=== PATIENT | male | born 1970 | race Caucasian/White ===

== ENCOUNTER 2017-05-29 14:32 | Inpatient (IN) | payer OTHER ==
[2017-05-29] MEDS ORDERED: IBUPROFEN LIQUID (PED) 20 MG/ML CUP PO (16:34)
[2017-05-29 16:41] LABS: ADD MAN DIFF? NO
[2017-05-29 16:45] LABS: WHITE BLOOD COUNT 20.6 10^3/ul (4.8-10.8)
[2017-05-29 16:45] LABS: BASOPHIL # 0.1 10^3/ul (0.0-0.1); BASOPHILS % 0.4 % (0.0-2.0); EOSINOPHILS % 0.1 % (0.0-7.0); HEMOGLOBIN 14.9 g/dl (14.0-18.0); LYMPHOCYTES # 1.4 10^3/ul (0.8-2.9); LYMPHOCYTES % 6.9 % (15.0-51.0); MEAN CORPUSCULAR HEMOGLOBIN 30.8 pg (29.0-33.0); MEAN CORPUSCULAR HGB CONC 33.9 g/dl (32.0-37.0); MEAN CORPUSCULAR VOLUME 90.9 fl (82.0-101.0); MEAN PLATELET VOLUME 10.6 fl (7.4-10.4); MONOCYTE # 0.9 10^3/ul (0.3-0.9); MONOCYTES % 4.5 % (0.0-11.0); NEUTROPHILS % 87.4 % (39.0-77.0); PLATELET COUNT 189 10^3/UL (140-415); RED BLOOD COUNT 4.84 10^6/ul (4.70-6.10); RED CELL DISTRIBUTION WIDTH 13.2 % (11.5-14.5)
[2017-05-29 17:02] LABS: INR 1.15; PROTIME 14.9 Sec (11.9-14.9); PT RATIO 1.2
[2017-05-29 17:03] LABS: PARTIAL THROMBOPLASTIN TIME 37.7 Sec (25.0-35.0)
[2017-05-29 17:04] LABS: ALANINE AMINOTRANSFERASE 35 IU/L (13-69); ALBUMIN 4.2 g/dl (3.3-4.9); ALBUMIN/GLOBULIN RATIO 1.31; ALKALINE PHOSPHATASE 77 IU/L (42-121); ANION GAP 13 (8-16); ASPARTATE AMINO TRANSFERASE 19 IU/L (15-46); BILIRUBIN,INDIRECT 0.3 mg/dl (0-1.1); BILIRUBIN,TOTAL 0.3 mg/dl (0.2-1.3); BLOOD UREA NITROGEN 18 mg/dl (7-20); CALCIUM 8.9 mg/dl (8.4-10.2); CARBON DIOXIDE 27 mmol/L (21-31); CHLORIDE 100 mmol/L (97-110); CREATININE 1.21 mg/dl (0.61-1.24); GLUCOSE 92 mg/dl (70-220); POTASSIUM 3.7 mmol/L (3.5-5.1); SODIUM 136 mmol/L (135-144); TOTAL PROTEIN 7.4 g/dl (6.1-8.1)
[2017-05-29] MEDS: HYDROmorphONE 1 MG/ML SYG IV ×2 (17:26→20:21)
[2017-05-29] MEDS: ONDANSETRON 4 MG INJ IV (17:26)
[2017-05-29] MEDS: PIPER-TAZO 3.375 GM IV (PMX) 100 ML IVPB (17:35)
[2017-05-29] MEDS: VANCOMYCIN 1 GM (PMX) 250 ML IVPB (18:22)
[2017-05-29] MEDS ORDERED: ONDANSETRON 4 MG INJ IV (20:00)
[2017-05-29] MEDS ORDERED: ACETAMINOPHEN 325 MG TAB PO (20:00)
[2017-05-29] MEDS: CEFAZOLIN 1 GM/50 ML (PMX) 50 ML IVPB (20:21)
[2017-05-29] MEDS ORDERED: ONDANSETRON 4 MG TAB PO (20:30)
[2017-05-29] MEDS ORDERED: NACL 0.9% 3 ML SYG IV (20:30)
[2017-05-30] MEDS: CEFAZOLIN 1 GM/50 ML (PMX) 50 ML IVPB ×2 (04:28→12:00)
[2017-05-30 04:53] LABS: ADD MAN DIFF? NO
[2017-05-30 05:00] LABS: WHITE BLOOD COUNT 14.8 10^3/ul (4.8-10.8)
[2017-05-30 05:00] LABS: BASOPHILS % 0.3 % (0.0-2.0); EOSINOPHILS # 0.1 10^3/ul (0.0-0.5); EOSINOPHILS % 0.9 % (0.0-7.0); HEMATOCRIT 43.7 % (42.0-52.0); HEMOGLOBIN 14.8 g/dl (14.0-18.0); MEAN CORPUSCULAR HEMOGLOBIN 31.1 pg (29.0-33.0); MEAN CORPUSCULAR HGB CONC 33.9 g/dl (32.0-37.0); MEAN CORPUSCULAR VOLUME 91.8 fl (82.0-101.0); MONOCYTE # 0.8 10^3/ul (0.3-0.9); MONOCYTES % 5.2 % (0.0-11.0); NEUTROPHIL # 12.7 10^3/ul (1.6-7.5); PLATELET COUNT 197 10^3/UL (140-415); RED BLOOD COUNT 4.76 10^6/ul (4.70-6.10); RED CELL DISTRIBUTION WIDTH 13.3 % (11.5-14.5)
[2017-05-30 05:21] LABS: ANION GAP 11 (8-16); BLOOD UREA NITROGEN 19 mg/dl (7-20); CALCIUM 9.2 mg/dl (8.4-10.2); CARBON DIOXIDE 30 mmol/L (21-31); CHLORIDE 99 mmol/L (97-110); CREATININE 1.26 mg/dl (0.61-1.24); GLUCOSE 123 mg/dl (70-220); MAGNESIUM 1.9 mg/dl (1.7-2.5); PHOSPHORUS 2.7 mg/dl (2.5-4.9); POTASSIUM 4.3 mmol/L (3.5-5.1); SODIUM 136 mmol/L (135-144)
[2017-05-30] MEDS: ACETAMINOPHEN 325 MG TAB PO ×2 (05:21→14:42)
[2017-05-30 07:20] LABS: HEMOGLOBIN A1C 5.7 % (0-5.9)
[2017-05-30] MEDS: ENOXAPARIN 40 MG/0.4 ML SYG SC (08:11)
[2017-05-30] MEDS: HYDROCODONE/APAP (5/325) TAB PO (08:15)
[2017-05-30] MEDS ORDERED: VANCOMYCIN IV PER PHARMACY XX (14:30)
[2017-05-30] MEDS ORDERED: HYDROmorphONE 0.5 MG/0.5 ML SYG IV (14:30)
[2017-05-30] MEDS: VANCOMYCIN 1.25 GM in SOD CHLORIDE 0.9% 250 ML IVPB (16:20)
[2017-05-30] MEDS: PIPER-TAZO 3.375 GM IV (PMX) 100 ML IVPB (20:41)
[2017-05-31] MEDS: PIPER-TAZO 3.375 GM IV (PMX) 100 ML IVPB ×3 (01:53→18:56)
[2017-05-31] MEDS: VANCOMYCIN 1.25 GM in SOD CHLORIDE 0.9% 250 ML IVPB ×2 (04:18→15:34)
[2017-05-31] MEDS: HYDROCODONE/APAP (10/325) TAB PO ×2 (05:48→20:18)
[2017-05-31 06:11] LABS: ADD MAN DIFF? NO
[2017-05-31 06:30] LABS: WHITE BLOOD COUNT 11.9 10^3/ul (4.8-10.8)
[2017-05-31 06:30] LABS: BASOPHIL # 0.1 10^3/ul (0.0-0.1); BASOPHILS % 0.4 % (0.0-2.0); EOSINOPHILS # 0.2 10^3/ul (0.0-0.5); EOSINOPHILS % 1.7 % (0.0-7.0); HEMATOCRIT 38.1 % (42.0-52.0); HEMOGLOBIN 13.4 g/dl (14.0-18.0); LYMPHOCYTES # 1.2 10^3/ul (0.8-2.9); LYMPHOCYTES % 9.8 % (15.0-51.0); MEAN CORPUSCULAR HEMOGLOBIN 31.3 pg (29.0-33.0); MEAN CORPUSCULAR HGB CONC 35.2 g/dl (32.0-37.0); MEAN PLATELET VOLUME 10.8 fl (7.4-10.4); MONOCYTE # 0.6 10^3/ul (0.3-0.9); MONOCYTES % 5.4 % (0.0-11.0); NEUTROPHIL # 9.8 10^3/ul (1.6-7.5); NEUTROPHILS % 82.5 % (39.0-77.0); PLATELET COUNT 194 10^3/UL (140-415); RED BLOOD COUNT 4.28 10^6/ul (4.70-6.10); RED CELL DISTRIBUTION WIDTH 12.9 % (11.5-14.5)
[2017-05-31 07:22] LABS: ANION GAP 13 (8-16); BLOOD UREA NITROGEN 12 mg/dl (7-20); CARBON DIOXIDE 23 mmol/L (21-31); CHLORIDE 103 mmol/L (97-110); CREATININE 1.01 mg/dl (0.61-1.24); GLUCOSE 137 mg/dl (70-220); POTASSIUM 4.2 mmol/L (3.5-5.1); SODIUM 135 mmol/L (135-144)
[2017-05-31] MEDS: ENOXAPARIN 40 MG/0.4 ML SYG SC (10:44)
[2017-06-01] MEDS: PIPER-TAZO 3.375 GM IV (PMX) 100 ML IVPB ×3 (02:20→18:51)
[2017-06-01 03:32] LABS: VANCOMYCIN,TROUGH 6.3 ug/ml (10.0-20.0)
[2017-06-01] MEDS: VANCOMYCIN 1.25 GM in SOD CHLORIDE 0.9% 250 ML IVPB ×2 (04:49→16:59)
[2017-06-01] MEDS: ENOXAPARIN 40 MG/0.4 ML SYG SC (09:04)
[2017-06-01] MEDS ORDERED: VANCOMYCIN 1.25 GM in SOD CHLORIDE 0.9% 250 ML IVPB (11:30)
[2017-06-01] MEDS: NICOTINE (14 MG/24 HR) PATCH TRANSDERM (17:08)
[2017-06-01] MEDS: DOCUSATE SODIUM 100 MG CAP PO (17:09)
[2017-06-01] MEDS: HYDROCODONE/APAP (10/325) TAB PO ×2 (17:09→21:12)
[2017-06-01] MEDS: CEPHALEXIN 500 MG CAP PO (21:12)
[2017-06-01] MEDS: CLOTRIMAZOLE 1% 30 GM CR TOP (21:12)
[2017-06-02 05:41] LABS: ADD MAN DIFF? NO
[2017-06-02 05:45] LABS: BASOPHIL # 0.1 10^3/ul (0.0-0.1); EOSINOPHILS # 0.4 10^3/ul (0.0-0.5); EOSINOPHILS % 5.2 % (0.0-7.0); HEMATOCRIT 43.1 % (42.0-52.0); HEMOGLOBIN 14.6 g/dl (14.0-18.0); LYMPHOCYTES % 26.5 % (15.0-51.0); MEAN CORPUSCULAR HEMOGLOBIN 30.3 pg (29.0-33.0); MEAN CORPUSCULAR HGB CONC 33.9 g/dl (32.0-37.0); MEAN CORPUSCULAR VOLUME 89.4 fl (82.0-101.0); MEAN PLATELET VOLUME 10.1 fl (7.4-10.4); MONOCYTE # 0.7 10^3/ul (0.3-0.9); MONOCYTES % 9.7 % (0.0-11.0); NEUTROPHIL # 4.2 10^3/ul (1.6-7.5); NEUTROPHILS % 56.8 % (39.0-77.0); PLATELET COUNT 264 10^3/UL (140-415); RED BLOOD COUNT 4.82 10^6/ul (4.70-6.10); RED CELL DISTRIBUTION WIDTH 12.7 % (11.5-14.5)
[2017-06-02 05:45] LABS: WHITE BLOOD COUNT 7.4 10^3/ul (4.8-10.8)
[2017-06-02] MEDS: CEPHALEXIN 500 MG CAP PO (06:10)
[2017-06-02 06:47] LABS: ANION GAP 18 (8-16); BLOOD UREA NITROGEN 10 mg/dl (7-20); CALCIUM 9.3 mg/dl (8.4-10.2); CARBON DIOXIDE 28 mmol/L (21-31); CHLORIDE 101 mmol/L (97-110); GLUCOSE 113 mg/dl (70-220); POTASSIUM 4.2 mmol/L (3.5-5.1); SODIUM 143 mmol/L (135-144)
[2017-06-02] MEDS: ENOXAPARIN 40 MG/0.4 ML SYG SC (08:51)
[2017-06-02] MEDS: CLOTRIMAZOLE 1% 30 GM CR TOP (08:51)
[2017-06-02] MEDS: DOCUSATE SODIUM 100 MG CAP PO (10:17)
[2017-06-02] MEDS ORDERED: BISACODYL (EC) 5 MG TAB PO (11:30)
== END 2017-06-02 12:25 | disposition home or self-care (01) | DRG 603 ==
LOC: FTE 14:32 → MS3 19:54 → MS2 05-30 18:45
DX: L03.115 Cellulitis of right lower limb (principal); B35.3 Tinea pedis; F17.200 Nicotine dependence, unspecified, uncomplicated; E03.9 Hypothyroidism, unspecified
CPT/HCPCS: 36415; 73590; 73630; 80048; 80053; 80202; 83036; 83735; 84100; 84443; 85025; 85610; 85730; 87040; 93005; 93971; 96365; 96366; 96368; 96375; 96376; 99217; 99285-25

== ENCOUNTER 2017-08-14 15:28 | Emergency (ER) | payer MEDICAID, OTHER ==
[2017-08-14] MEDS: CLINDAMYCIN 300 MG CAP PO (16:21)
[2017-08-14] MEDS: traMADol 50 MG TAB PO (16:39)
== END 2017-08-14 17:09 | disposition home or self-care (01) ==
LOC: E/R 17:09
DX: L03.115 Cellulitis of right lower limb (principal); E03.9 Hypothyroidism, unspecified; Z87.891 Personal history of nicotine dependence
CPT/HCPCS: 93971; 99284-25

== ENCOUNTER 2017-11-21 20:08 | Emergency (ER) | payer SELFPAY, MEDICAID ==
[2017-11-21 22:15] LABS: URINE BLOOD (Dip) POC 2+ (NEGATIVE); URINE KETONES (Dip) POC Negative (NEGATIVE); URINE LEUKOCYTE EST (Dip) POC 1+ (NEGATIVE); URINE NITRITE (Dip) POC Positive (NEGATIVE); URINE TOTAL PROTEIN POC 2+ (NEGATIVE)
[2017-11-21 22:15] LABS: URINE PH (Dip) POC 7.5 (5.0-8.5)
[2017-11-21] MEDS: AZITHROMYCIN 250 MG TAB PO (22:23)
[2017-11-21] MEDS: CEFTRIAXONE 250 MG INJ IM (22:24)
[2017-11-21] MEDS: KETOROLAC 30 MG INJ IM (22:24)
[2017-11-21] MEDS: LIDOCAINE 1% (MDV) 10 ML INJ INJ (22:25)
[2017-11-21 22:34] LABS: ADD UMIC YES; UR ASCORBIC ACID 20 mg/dL (NEGATIVE); UR BACTERIA MODERATE /HPF (NONE SEEN); UR BILIRUBIN (Dip) NEGATIVE (NEGATIVE); UR BLOOD (Dip) 2+ mg/dL (NEGATIVE); UR CLARITY CLOUDY (CLEAR); UR COLOR YELLOW (YELLOW); UR GLUCOSE (Dip) 2+ mg/dL (NEGATIVE); UR KETONES (Dip) NEGATIVE (NEGATIVE); UR LEUKOCYTE ESTERASE (Dip) 2+ Leu/ul (NEGATIVE); UR MUCUS FEW /HPF (NONE SEEN); UR NITRITE (Dip) NEGATIVE (NEGATIVE); UR RBC 126 /HPF (0-5); UR SPECIFIC GRAVITY (Dip) 1.025 (1.003-1.030); UR TOTAL PROTEIN (Dip) 2+ mg/dl (NEGATIVE); UR UROBILINOGEN (Dip) 1+ mg/dL (NEGATIVE); UR WBC 100 /HPF (0-5)
[2017-11-21] MEDS: LEVOFLOXACIN 500 MG TAB PO (22:39)
== END 2017-11-22 | disposition left against medical advice (07) ==
LOC: FTE 11-22
DX: R36.9 Urethral discharge, unspecified (principal); Z87.891 Personal history of nicotine dependence
CPT/HCPCS: 81001; 81003; 87591; 96372; 99284-25